=== PATIENT | male | born 1975 | race Caucasian/White ===

== ENCOUNTER 2016-07-18 23:01 | Inpatient (IN) | payer OTHER ==
--- NOTE | ~2016-07-18 | DS ---
Unit #: [id number] #: [id number] Patient: JUDY HERNANDEZ [id number] [facility] [address] [place] [address] [id number] MR#: [id number] NAME: JUDY HERNANDEZ ROOM: [facility] Age: 40 Sex: M Admission Date: 07/18/2016 : 1975 Discharge Date: 07/21/2016 Attending Physician: Daniel Grossman M.D. Primary Care Physician: Primary Care Physician No DISCHARGE SUMMARY REASON FOR ADMISSION The patient is a 40-year-old white male, admitted to the [facility] unit with a methamphetamine-induced psychosis. HOSPITAL COURSE The patient was admitted to the [facility] unit and placed on suicide precautions. Zydis 10 mg q.8 hours p.r.n. agitation due to psychosis was ordered and as the patient was continued to exhibit symptoms of psychosis, he was begun on Zyprexa 15 mg at h.s. The patient did report some issues with sedation of this medication, but generally showed improvement in symptoms and reduction in psychotic symptoms. On 07/21/2016, he requested discharge stating a plan to begin to follow in a programming. Discharge was ordered. FINAL DIAGNOSES Methamphetamine use disorder with perceptual disturbance, resolved. DISPOSITION ON DISCHARGE The patient is discharged on no psychotropic or other medications. FOLLOWUP Followup will take place through the auspices of community mental health and chemical dependency treatment resources. PROGNOSIS The patient's prognosis is considered fair, but will be darkened considerably should he continue to abuse methamphetamine. Dictated by... Daniel Grossman M.D. CB/khoa TD: 07/22/2016 04:31 JOB #: [id number] Unit #: [id number] #: [id number] Patient: JUDY HERNANDEZ DISCHARGE SUMMARY X Daniel Grossman MD X DISCHARGE SUMMARY
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
--- NOTE | ~2016-07-18 | PN ---
Unit #: [id number] #: [id number] Patient: JUDY HERNANDEZ [id number] [facility] [address] [place] [address] [id number] MR#: [id number] NAME: JUDY HERNANDEZ ROOM: [facility] Age: 40 Sex: M Admission Date: 07/18/2016 : 1975 Attending Physician: Daniel Grossman M.D. Admitting Physician: Daniel Grossman M.D. Primary Care Physician: Primary Care Physician Beena KILGORE PROGRESS NOTES DATE 07/20/2016 DISCUSSION The patient continues to appear somewhat paranoid and continues to exhibit pressured and tangential speech. We continue current treatment. Dictated by... Daniel Grossman M.D. CB/kianna TD: 07/21/2016 01:41 JOB #: [id number] [facility] PROGRESS NOTES X Daniel Grossman MD X PROGRESS NOTE
[~2016-07-18 23:01] MED LIST: BACTRIM DS TABL1 TA2 PO; CARAFATE1 G PO; DOLOBID500 MG PO; FLEXERIL10 MG PO; LINDANE; LINDANE TOP; LORTAB 5/500 TA1 TA1 PO; LYRICA PO; NEURONTIN PO; NO MEDICATIONS; ORUDIS75 M1 PO; PHENERGAN25 MG PO; PREDNISONE PO; PREDNISONE10 MG/DOSE PO; PRILOSEC20 MG PO; ROXICODONE5 MG PO; SKELAXIN PO; SOMA PO; ULTRAM PO; VICODIN 5/1 TAB 5/50 PO; VICODIN PO; VOLTAREN75 MG PO; ZANTAC150 MG PO; ZANTAC300 MG PO
[2016-07-19 16:54] LABS: URINE APPEARANCE TURBID; URINE BLOOD NEG (NEG); URINE COLOR DK YELLOW; URINE GLUCOSE NEG (NEG); URINE KETONE NEG (NEG); URINE LEUKOCYTE ESTERASE NEG (NEG); URINE NITRATE NEG (NEG); URINE PH 5.5 (5-8); URINE PROTEIN TRACE (NEG); URINE SPECIFIC GRAVITY 1.041 (1.003-1.035)
[2016-07-19 16:58] LABS: URINE BILIRUBIN NEG (NEG)
[2016-07-19 17:06] LABS: AMPHETAMINE POS (NEG); BARBITURATES NEG (NEG); BENZODIAZEPINES NEG (NEG); COCAINE NEG (NEG); MARIJUANA POS (NEG); OPIATES NEG (NEG); TRICYCLIC ANTIDEPRESSANTS NEG (NEG); U METHADONE NEG (NEG)
[2016-07-20 12:30] LABS: BASOPHIL% 0.7 % (0-2.5); EOSINOPHIL# 0.2 X10e3 (0-0.7); EOSINOPHIL% 2.8 % (0.0-7.0); HEMATOCRIT 38.1 % (38.0-50.0); HEMOGLOBIN 12.7 gm/dL (13.0-16.0); MEAN CELL VOLUME 94.8 FL (83-96); MEAN CORPUSCULAR HEMOGLOBIN 31.6 PG (28-34); MEAN CORPUSCULAR HGB CONC 33.3 g/dL (30-36); MONOCYTE# 0.4 X10e3 (0-1.0); MONOCYTE% 6.1 % (3.0-12.0); NEUTROPHIL# 3.4 X10e3 (1.5-7.1); NEUTROPHIL% 56.4 % (40-75); PLATELET COUNT 263 X10e3 (140-420); RED BLOOD COUNT 4.02 X10e (3.90-5.60); RED CELL DISTRIBUTION WIDTH 13.7 % (11.0-15.5)
[2016-07-20 12:32] LABS: DIFF IND NO
[2016-07-20 12:51] LABS: THYROID STIMULATING HORMONE 0.58 uIU/ml (0.34-5.60)
[2016-07-20 12:56] LABS: ALBUMIN SERUM 3.8 g/dL (3.5-5.0); ALKALINE PHOSPHATASE 45 U/L (32-92); ALT (SGPT) 23 U/L (10-40); AST (SGOT) 17 U/L (10-42); BILIRUBIN,TOTAL 0.4 mg/dL (0.2-2.0); BLOOD UREA NITROGEN 12 mg/dL (9-23); BUN/CREATININE RATIO 13.33; CALCIUM SERUM 9.4 mg/dL (8.4-10.2); CARBON DIOXIDE 32 mmol/L (22-31); CHLORIDE 104 mmol/L (100-111); CREATININE SERUM 0.9 mg/dL (0.6-1.4); GLOM FILT RATE Estimated ABOVE60 mL/min (>60); GLUCOSE FASTING 67 mg/dL (70-110); POTASSIUM 4.4 mmol/L (3.5-5.1); PROTEIN TOTAL SERUM 5.7 g/dL (6.0-8.3); SODIUM 143 mmol/L (135-145)
[2016-07-20 12:58] LABS: FREE THYROXIN (T4) 0.8 ng/dL (0.58-1.64)
== END 2016-07-21 16:00 | disposition home or self-care (01) | DRG 897 ==
LOC: P1E 23:01
PROVIDERS: Specialist
DX: F15.122 Other stimulant abuse with intoxication with perceptual disturbance (principal); F17.210 Nicotine dependence, cigarettes, uncomplicated; Z88.0 Allergy status to penicillin; Z91.040 Latex allergy status
CPT/HCPCS: 80053; 80307; 81003; 84439; 84443; 85025

== ENCOUNTER 2016-07-25 17:04 | Inpatient (IN) | payer OTHER ==
--- NOTE | ~2016-07-25 | HP ---
Unit #: [id number] #: [id number] Patient: JUDY HERNANDEZ [id number] [place] [address] [id number] MR#: [id number] NAME: JUDY HERNANDEZ ROOM: [facility] Age: 41 Sex: M Admission Date: 07/25/2016 : 1975 Attending Physician: Daniel Grossman M.D. Admitting Physician: Daniel Grossman M.D. Primary Care Physician: Primary Care Physician No HISTORY AND PHYSICAL HISTORY OF PRESENT ILLNESS Judy is a 41 year old admitted to [address] [place] [address] because of his continued drug use. He smokes methamphetamine. PAST MEDICAL HISTORY History of illicit substance abuse. PAST SURGICAL HISTORY Nothing reported. ALLERGIES Penicillin, latex. SOCIAL HISTORY Smokes one-half pack per day. Denies alcohol. Has a history of poly illicit substance abuse to include cocaine, marijuana and methamphetamine. FAMILY HISTORY Medically noncontributory. REVIEW OF SYSTEMS CONSTITUTIONAL: No fever or chills. HEENT: Denies any sore throat, ear pain or runny nose. CARDIOVASCULAR: Denies chest pain, irregular heart rhythm or palpitations. CHEST: Denies shortness of breath or cough. No hemoptysis. GASTROINTESTINAL: Denies nausea, vomiting, diarrhea or chronic constipation. ENDOCRINE: Denies history of increased thirst or urination. No recent significant weight loss or gain. GENITOURINARY: Denies dysuria, frequency, or hematuria. SKIN: Denies any rashes. HEMATOLOGIC: Denies history of increased bleeding or bruising. MUSCULOSKELETAL: Denies any hot, swollen joints. No generalized muscle pain. NEUROLOGIC: Denies problems with vision or speech. No frequent, severe headaches. No numbness, tingling or weakness in any extremities. Denies loss of bladder or bowel control. CURRENT MEDICATIONS 1. Motrin p.r.n. 2. Milk of Magnesia p.r.n. 3. Maalox p.r.n. Unit #: [id number] #: [id number] Patient: JUDY HERNANDEZ 4. Tylenol p.r.n. 5. Nicotine patch 14 mg daily PHYSICAL EXAMINATION GENERAL: Alert, well-nourished, in no apparent distress. VITAL SIGNS: Blood pressure 120/64, heart rate 80, respirations 16, temperature 98.6. WEIGHT: 148 pounds. HEIGHT: 5'9". SKIN: Warm and dry without rash or lesion. HEENT: Normocephalic. TMs not viewed. Oral and nasal passages clear. Conjunctivae clear. Pupils equal, round and reactive to light and accommodation. Extraocular movements intact. NECK: Supple without lymphadenopathy or thyromegaly. HEART: Regular rate and rhythm without murmur. LUNGS: Clear. ABDOMEN: Soft, nontender. : Not done. EXTREMITIES: No evidence of cyanosis, clubbing or edema. Moves all extremities without focal deficit. NEUROLOGICAL: Grossly within normal limits. Cranial Nerves: II: Visual dumont are intact. III, IV AND : Extraocular movements are intact. Pupils are equal, round and reactive to light. V: Facial sensation is grossly normal. VII: Facial movements and expression are normal. VIII: Auditory acuity grossly intact. IX, X: Uvula is midline. Phonation is normal. XI: Patient shrugs shoulders and turns head normally. XII: Tongue protrudes in the midline. Sensory and Motor Function: Sensory and motor sensation is grossly normal. Motor: moves all extremities well. Coordination: Gait is normal. Deep Tendon Reflexes: Intact. IMPRESSION Psychiatric admission RECOMMENDATIONS PSYCHIATRIC: Per psychiatrist. MEDICAL: I see no contraindications to participating in facility's activities. MEDICAL PROGNOSIS Good. MEDICAL CONDITION Stable. Dictated by... Loretta Thomason P.A.-C. for [facility] Jang/kianna TD: 07/26/2016 23:12 Unit #: [id number] #: [id number] Patient: JUDY HERNANDEZ JOB #: [id number] HISTORY AND PHYSICAL X Loretta Thomason X HISTORY AND PHYSICAL
--- NOTE | ~2016-07-25 | PN ---
Unit #: [id number] #: [id number] Patient: JUDY HERNANDEZ [id number] [facility] [address] [place] [address] [id number] I MR#: [id number] NAME: JUDY HERNANDEZ ROOM: [facility] Age: 41 Sex: M Admission Date: 07/25/2016 : 1975 Attending Physician: Daniel Grossman M.D. Admitting Physician: Daniel Grossman M.D. Primary Care Physician: Primary Care Physician Beena KILGORE PROGRESS NOTES DATE 07/27/2016 DISCUSSION The patient is sleeping soundly today, and multiple attempts by this physician to arouse the patient are unsuccessful. Staff reports no management issues, and we continue to await word regarding possible residential chemical dependence treatment. Dictated by... Daniel Grossman M.D. CB/stacy TD: 07/27/2016 14:57 JOB #: [id number] [facility] PROGRESS NOTES X Daniel Grossman MD PROGRESS NOTE
--- NOTE | ~2016-07-25 | DS ---
Unit #: [id number] #: [id number] Patient: JUDY HERNANDEZ [id number] [facility] [address] [place] [address] [id number] MR#: [id number] NAME: JUDY HERNANDEZ ROOM: [facility] Age: 41 Sex: M Admission Date: 07/25/2016 : 1975 Discharge Date: 07/28/2016 Attending Physician: Daniel Grossman M.D. Primary Care Physician: Primary Care Physician No DISCHARGE SUMMARY REASON FOR ADMISSION The patient is a 41-year-old white male readmitted to the hospital with a methamphetamine-induced psychosis. with a history of alprazolam addiction admitted for detox. HOSPITAL COURSE The patient was admitted to the [facility] and continued on previously prescribed p.r.n. Zydis. He required little of this medication, and his stay in the hospital was a fairly brief and uneventful one. By 07/29/2016, he has been accepted for residential chemical dependence treatment and discharge was ordered. FINAL DIAGNOSIS Methamphetamine-use disorder. DISPOSITION ON DISCHARGE The patient was discharged on no psychotropic or other medications. Followup will take place through the auspices of residential chemical dependence treatment resources. PROGNOSIS Considered fair. Dictated by... Ashley Kumar TD: 07/28/2016 14:07 JOB #: [id number] DISCHARGE SUMMARY X Daniel Grossman MD X DISCHARGE SUMMARY
--- NOTE | ~2016-07-25 | PA ---
Unit #: [id number] #: [id number] Patient: JUDY HERNANDEZ [id number] [facility] [address] [place] [address] [id number] I MR#: [id number] NAME: JUDY HERNANDEZ ROOM: [facility] Age: 41 Sex: M Admission Date: 07/25/2016 : 1975 Date of Assessment: 07/26/2016 Attending Physician: Daniel Grossman M.D. Admitting Physician: Daniel Grossman M.D. Primary Care Physician: Primary Care Physician No PSYCHIATRIC ASSESSMENT IDENTIFYING INFO The patient is a 41-year-old white male admitted to the [address] [place] [address] with recurrent methamphetamine abuse and psychosis. CHIEF COMPLAINT It is the same thing. INFORMANT(S) The patient, reliability is poor. HISTORY OF PRESENT ILLNESS The patient is 41-year-old white male admitted after he presented to this facility yesterday reporting that he has been using methamphetamine since his previous discharge which took place on 07/21/2016. The patient was reporting positive delusional thinking including the belief that the FBI is following him. He is now expressing interest in residential chemical dependence treatment but continues to endorse positive psychotic symptoms. These had cleared during the patient's last hospitalization with Zyprexa which was not continued on discharge. For more complete history of present illness please refer to previous dictated notes. PAST PSYCHIATRIC HISTORY Reviewed no changes. PAST MEDICAL HISTORY Reviewed no changes. MEDICATIONS None. ALLERGIES None. FAMILY HISTORY Reviewed no changes. SOCIAL HISTORY Reviewed no changes. MENTAL STATUS EXAMINATION At this time reveals the patient to be a thin white male appearing his stated age. He is in no apparent physical distress at the time of examination. He is awake, alert, and oriented in all spheres. His mood Unit #: [id number] #: [id number] Patient: JUDY HERNANDEZ is mildly dysphoric. His affect constricted. Speech is generally relevant and coherent. There are no gross deficits in memory or cognition noted. Intelligence is judged to be in the average range based on fund of knowledge. The patient is generally cooperative during interview. He is continues to endorse positive psychotic thinking. He denies suicidal or homicidal ideation. Judgment and insight appear to be significantly impaired. ASSETS AND LIABILITIES ASSETS: To be assessed. LIABILITIES: Continued drug use. ADMITTING DIAGNOSES Methamphetamine use with perceptional disturbance. PSYCHIATRIC PLAN/TREATMENT GOALS The patient remains hospitalized for safety and stabilization. PRN of Zyprexa will be ordered and the patient will participate in appropriate sandoval and milieu activities. He is now expressing interest in residential chemical dependence treatment and we will make a referral related thereto. ESTIMATED LENGTH OF STAY Three to five days. Dictated by... Daniel Grossman M.D. CB/kianna TD: 07/26/2016 19:20 JOB #: [id number] PSYCHIATRIC ASSESSMENT X Daniel Grossman MD X PSYCHIATRIC ASSESSMENT
== END 2016-07-29 09:55 | disposition home or self-care (01) | DRG 897 ==
LOC: P2S 17:04 → POF 18:46 → P2S 18:54
PROC: HZ2ZZZZ Detoxification Services for Substance Abuse Treatment (ICD-10-PCS; principal; 2016-07-25)
DX: F15.222 Other stimulant dependence with intoxication with perceptual disturbance (principal); F17.200 Nicotine dependence, unspecified, uncomplicated

== ENCOUNTER 2016-08-03 03:47 | Inpatient (IN) | payer OTHER ==
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
--- NOTE | ~2016-08-03 | DS ---
Unit #: [id number] #: [id number] Patient: JUDY HERNANDEZ [id number] [facility] [address] [place] [address] [id number] I MR#: [id number] NAME: JUDY HERNANDEZ ROOM: [facility] Age: 41 Sex: M Admission Date: 08/03/2016 : 1975 Discharge Date: 08/03/2016 Attending Physician: Daniel Grossman M.D. Primary Care Physician: Camilla Yates DISCHARGE SUMMARY REASON FOR ADMISSION The patient is a 41-year-old white male, admitted after he had presented to this facility claiming to be suicidal. HOSPITAL COURSE The patient was admitted to the [facility] unit and placed on suicide precautions. He was seen by this physician on the afternoon of 08/03/2016 and at that time denied suicidal ideation. He complained of the conditions at the residential chemical dependency treatment facility at which he had been sent and requested information regarding local fci houses. Given the fact that the patient was no longer psychotic or voicing any suicidal ideation, it was felt that he did not meet criteria for ongoing hospitalization and discharge was ordered. FINAL DIAGNOSES Methamphetamine use disorder, opioid use disorder, antisocial personality disorder. DISPOSITION ON DISCHARGE No psychotropic or other medications were ordered at the time of discharge. FOLLOWUP Followup will take place through the auspices of community mental health resources. PROGNOSIS The patient's prognosis is considered guarded. Dictated by... Daniel Grossman M.D. GILLIAN/khoa TD: 08/03/2016 23:55 JOB #: [id number] Unit #: [id number] #: [id number] Patient: JUDY HERNANDEZ DISCHARGE SUMMARY X Daniel Grossman MD X DISCHARGE SUMMARY
--- NOTE | ~2016-08-03 | HP ---
Unit #: [id number] #: [id number] Patient: JUDY HERNANDEZ [id number] [facility] [address] [place] [address] [id number] I MR#: [id number] NAME: JUDY HERNANDEZ ROOM: [facility] Age: 41 Sex: M Admission Date: 08/03/2016 : 1975 Attending Physician: Daniel Grossman M.D. Admitting Physician: Daniel Grossman M.D. Primary Care Physician: Camilla Yates HISTORY AND PHYSICAL NOTE Judy is a 41 year old who was admitted and discharged within the first 24 hours. He was not seen for a history and physical. Dictated by... Loretta Thomason P.A.-C. for [facility] Jang/kianna TD: 08/04/2016 01:55 JOB #: [id number] HISTORY AND PHYSICAL X Loretta Thomason HISTORY AND PHYSICAL
== END 2016-08-03 15:30 | disposition home or self-care (01) | DRG 897 ==
LOC: P1E 03:47 → POF 12:38 → P1E 12:41
DX: F15.20 Other stimulant dependence, uncomplicated (principal); F11.20 Opioid dependence, uncomplicated; R45.851 Suicidal ideations; F60.2 Antisocial personality disorder

== ENCOUNTER 2016-08-04 17:11 | Inpatient (IN) | payer OTHER ==
--- NOTE | ~2016-08-04 | DS ---
Unit #: [id number] #: [id number] Patient: JUDY HERNANDEZ [id number] [facility] [address] [place] [address] [id number] MR#: [id number] NAME: JUDY HERNANDEZ ROOM: [facility] Age: 41 Sex: M Admission Date: 08/04/2016 : 1975 Discharge Date: 08/05/2016 Attending Physician: Daniel Grossman M.D. Primary Care Physician: Camilla Yates DISCHARGE SUMMARY REASON FOR ADMISSION The patient is a 41-year-old white male, admitted after he had presented to this facility claiming to be suicidal. HOSPITAL COURSE The patient was admitted to the [address] [place] [address] unit and placed on room lockout precautions. He denied suicidal ideation when seen by this physician on 08/05/2016 and requested discharge from the hospital citing a need to care for his niece. He denies suicidal ideation at that time. This patient was gently firmly confronted regarding his recent malingering and multiple admissions to this facility. FINAL DIAGNOSES Methamphetamine use disorder, malingering. DISPOSITION ON DISCHARGE The patient is discharged on no psychotropic or other medications. FOLLOWUP Followup will take place through the auspices of community mental health and chemical dependency treatment resources. PROGNOSIS The patient's prognosis remains guarded. Dictated by... Daniel Grossmna M.D. GILLIAN/khoa TD: 08/05/2016 22:45 JOB #: [id number] DISCHARGE SUMMARY X Daniel Grossman MD X DISCHARGE SUMMARY
--- NOTE | ~2016-08-04 | PA ---
Unit #: [id number] #: [id number] Patient: JUDY HERNANDEZ [id number] [facility] [address] [place] [address] [id number] MR#: [id number] NAME: JUDY HERNANDEZ ROOM: [facility] Age: 41 Sex: M Admission Date: 08/04/2016 : 1975 Date of Assessment: 08/05/2016 Attending Physician: Daniel Grossman M.D. Admitting Physician: Daniel Grossman M.D. Primary Care Physician: Camilla Yates PSYCHIATRIC ASSESSMENT IDENTIFYING INFORMATION The patient is a 41-year-old white male readmitted after he had presented to this facility claiming to be suicidal. CHIEF COMPLAINT None given. INFORMANT(S) Patient and chart. The patient's reliability is poor. HISTORY OF PRESENT ILLNESS The patient is a 41-year-old white male just discharged on 08/03/2016. He returned to this facility stating a plan to kill himself by means of overdose. The patient reports that he had left this facility on 08/03/2016 and had gone to [facility], [facility] , and [facility] but was not accepted in any of those facilities. It is worth noting that the patient left residential treatment at [facility] in [place], [place], after only 3 days' duration of stay there. When seen today, the patient is denying suicidal ideation and states that he is needed at home to help care for his niece. He is requesting discharge. PAST PSYCHIATRIC HISTORY Reviewed, no changes. PAST MEDICAL HISTORY Reviewed, no changes. MEDICATIONS Ibuprofen. ALLERGIES Penicillin. FAMILY HISTORY Reviewed, no changes. SOCIAL HISTORY Reviewed, no changes. MENTAL STATUS EXAMINATION Examination at this time reveals the patient to be a well-developed well-nourished white male appearing stated age. He is in no apparent physical distress at the time of the examination. He is awake, alert, and Unit #: [id number] #: [id number] Patient: JUDY HERNANDEZ oriented in all spheres. His mood is euthymic, his affect congruent. Speech is generally well-coherent. No gross deficits in memory or cognition are noted. Intelligence is judged to be in the average range based on fund of knowledge. The patient is cooperative throughout the interview. He is currently denying suicidal or homicidal ideation, and denies any psychotic symptoms. His judgment and insight to appear to be reasonably intact. ASSETS AND LIABILITIES The patient's assets are to be assessed. Liabilities: Sociopathy, lack of resources, hopelessness, malingering. DIAGNOSTIC IMPRESSION 1. Methamphetamine use disorder. 2. Malingering. TREATMENT PLAN The patient will be discharged and will given information regarding community mental health resources. He is at this time denying suicidal ideation and does not felt to meet criteria for involuntary hospitalization. Dictated by... Daniel Grossman M.D. GILLIAN/stacy TD: 08/05/2016 14:55 JOB #: [id number] PSYCHIATRIC ASSESSMENT X Daniel Grossman MD X PSYCHIATRIC ASSESSMENT
--- NOTE | ~2016-08-04 | HP ---
Unit #: [id number] #: [id number] Patient: JUDY HERNANDEZ [id number] [facility] [address] [place] [address] [id number] I MR#: [id number] NAME: JUDY HERNANDEZ ROOM: 12 Age: 41 Sex: M Admission Date: 08/04/2016 : 1975 Attending Physician: Daniel Grossman M.D. Admitting Physician: Daniel Grossman M.D. Primary Care Physician: Camilla Yates HISTORY AND PHYSICAL Judy is a 41 year old admitted and discharged within the first 24 hours. He was not seen for an H and P. Dictated by... Loretta Thomason P.A.-C. for Ashley Jang/dominick TD: 08/05/2016 19:47 JOB #: [id number] HISTORY AND PHYSICAL X Loretta Thomason X HISTORY AND PHYSICAL
== END 2016-08-05 15:00 | disposition home or self-care (01) | DRG 897 ==
LOC: P1S 17:11
DX: F15.20 Other stimulant dependence, uncomplicated (principal); Z88.0 Allergy status to penicillin; Z76.5 Malingerer [conscious simulation]

== ENCOUNTER 2017-01-31 19:28 | Emergency (ER) | payer OTHER ==
--- NOTE | ~2017-01-31 | CR20 ---
[facility] A Service of [facility] & [facility] RADIOLOGY TEXT RESULTS PATIENT: JUDY HERNANDEZ LOCATION: [facility] : [birth year] UNIT #: [id number] AGE: [address]: Lachelle Faith MD SEX: M ORDER DR: [id number] [facility] [address] [place], [place] [address] [id number] E MR#: [id number] Acc #: [id number] NAME: JUDY HERNANDEZ : 1975 SEX: M STUDY DATE/TIME: 01/31/2017 19:52 UNIT: [facility] ROOM: STUDY DESCRIPTION: CR Ankle Min 3 Views Lt Attending Physician: Lachelle Faith M.D. Ordering Physician: Lachelle Faith M.D. Primary Care Physician: No Primary Care Physician MEDICAL IMAGING REPORT This report is preliminary unless electronic signature is present EXAM Left ankle 3 views HISTORY Ankle pain and swelling. Crush injury today. FINDINGS AP, lateral, and oblique projections of the ankle show satisfactory integrity of the joint mortise with a smooth articular surface. There is no identifiable fracture, dislocation, or radiopaque foreign body. IMPRESSION Normal ankle. Dictated by... Donnell Yen M.D. THIS IS AN ELECTRONICALLY VERIFIED REPORT Donnell Yen M.D. at 02/01/2017 2:30 PM DFL/df TD: 02/01/2017 13:41 JOB #: [id number] MEDICAL IMAGING REPORT Page 1 of 1 COPY
--- NOTE | ~2017-01-31 | CR126 ---
[facility] A Service of [facility] RADIOLOGY TEXT RESULTS PATIENT: JUDY HERNANDEZ LOCATION: [facility] : 77 UNIT #: [id number] AGE: [address]: Lachelle Faith MD SEX: M ORDER DR: [id number] [facility] [address] [place], [place] [address] [id number] E MR#: [id number] Acc #: [id number] NAME: JUDY HERNANDEZ : 1975 SEX: M STUDY DATE/TIME: 01/31/2017 19:52 UNIT: [facility] ROOM: STUDY DESCRIPTION: CR Foot Complete Min 3 View Lt Attending Physician: Lachelle Faith M.D. Ordering Physician: Lachelle Faith M.D. Primary Care Physician: No Primary Care Physician MEDICAL IMAGING REPORT This report is preliminary unless electronic signature is present EXAM Left foot 3 views. HISTORY Foot pain after crush injury today. Swelling. FINDINGS 3 views left foot demonstrate nondisplaced oblique fracture of the distal shaft of the fifth metatarsal near the junction of the middle and distal thirds. No additional fracture. Minimal degenerative changes at the first MTP joint. Remainder of the foot is negative. Dictated by... Donnell Yen M.D. THIS IS AN ELECTRONICALLY VERIFIED REPORT Donnell Yen M.D. at 02/01/2017 2:30 PM DFL/gz TD: 02/01/2017 13:15 JOB #: [id number] MEDICAL IMAGING REPORT Page 1 of 1 COPY
== END 2017-01-31 23:15 | disposition short-term general hospital (02) ==
LOC: CED 19:28
DX: S92.355A Nondisplaced fracture of fifth metatarsal bone, left foot, initial encounter for closed fracture (principal); F17.210 Nicotine dependence, cigarettes, uncomplicated; W22.8XXA Striking against or struck by other objects, initial encounter; Y92.009 Unspecified place in unspecified non-institutional (private) residence as the place of occurrence of the external cause
CPT/HCPCS: 73610; 73630; 96374; 96375; 99284; J2270; J2405